=== PATIENT | female | born 1945 ===

== ENCOUNTER 2017-08-15 12:45 | Emergency (ER) | payer MEDICARE ==
--- NOTE | 2017-08-15 15:14 | C.PDOC ---
History Of Present Illness 71 year old female presents to the ED for evaluation of right shoulder pain which began after she sustained a trip and fall [employer]. Patient notes the pain begins in her shoulder and radiates down her upper arm. She states pain is worse with movement. Patient denies head injury, LOC, changes in sensation, chest pain, rib pain. Patient is right-hand dominant. Time Seen by Provider: 08/15/17 15:06 Chief Complaint (Nursing): Upper Extremity Problem/Injury History Per: Patient History/Exam Limitations: no limitations Onset/Duration Of Symptoms: Hrs Current Symptoms Are (Timing): Still Present Quality: "Pain" Exacerbating Factor(s): Movement Additional History Per: Patient Past Medical History Reviewed: Historical Data, Nursing Documentation, Vital Signs Vital Signs: Last Vital Signs Temp 98.1 F 08/15/17 16:32 Pulse 80 08/15/17 16:32 Resp 18 08/15/17 16:32 BP 130/84 08/15/17 16:32 Pulse Ox 99 08/15/17 19:59 - Medical History PMH: No Chronic Diseases Surgical History: Cholecystectomy Family History: States: Unknown Family Hx - Social History Hx Alcohol Use: No Hx Substance Use: No - Immunization History Hx Tetanus Toxoid Vaccination: No Hx Influenza Vaccination: No Hx Pneumococcal Vaccination: No Review Of Systems Musculoskeletal: Positive for: Shoulder Pain (right), Arm Pain (right) Neurological: Negative for: Weakness, Numbness, Other (LOC, head injury ) Physical Exam - Physical Exam Appears: Non-toxic, No Acute Distress Skin: Normal Color, Warm, Dry Head: Atraumatic, Normacephalic Eye(s): bilateral: Normal Inspection, EOMI Nose: Normal Oral Mucosa: Moist Neck: Normal ROM, Supple Chest: Symmetrical, No Deformity, No Tenderness Cardiovascular: Rhythm Regular Respiratory: Normal Breath Sounds, No Rales, No Rhonchi, No Wheezing Extremity: No Normal ROM (decreased in right shoulder secondary to pain ), Tenderness (diffuse, right shoulder ), Capillary Refill (less than 2 seconds ) Pulses: Left Radial: Normal, Right Radial: Normal Neurological/Psych: Oriented x3, Normal Speech, Normal Cognition, Normal Sensation ED Course And Treatment O2 Sat by Pulse Oximetry: 99 (on RA) Pulse Ox Interpretation: Normal - Other Rad shoulder XR X-Ray: Interpreted by Me, Viewed By Me, Read By Radiologist Interpretation: PROCEDURE: Radiographs of the Right Shoulder. HISTORY: Trauma. COMPARISON: No prior. FINDINGS: BONES: There is no acute displaced fracture or bone destruction. Bone alignment and mineralization are normal. 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 SOFT TISSUES: Normal. OTHER FINDINGS: None. IMPRESSION : No acute fracture or dislocation. humerus XR X-Ray: Interpreted by Me, Viewed By Me, Read By Radiologist Interpretation: PROCEDURE: Radiographs of the right humerus. HISTORY: Trauma. COMPARISON: None. FINDINGS: BONES: Bone alignment and mineralization are normal. No acute displaced fracture or focal lesion. SOFT TISSUES: Normal. OTHER FINDINGS: None. IMPRESSION: No acute displaced fracture. Progress Note: Right shoulder XR, Right Humerus XR ordered. Tylenol PO administered. On reassessment, patient is resting comfortably, with improvement pain. Patient remains afebrile, with no bony tenderness, extremity numbness or weakness, or abdominal pain. Patient is ambulatory in the emergency department with no signs of discomfort. Patient was advised to follow up with physician/clinic in 1-2 days. Case discussed with Dr Quiles who evlauated XR and agreed upon plan and treatment. Shoulder sling applied by medical instrument technician. Disposition - Disposition Referrals: Dank Carter III, MD [Staff Provider] - Disposition: HOME/ ROUTINE Disposition Time: 16:00 Condition: STABLE Additional Instructions: Rest and ice the area. Follow up with the bone doctor in 1-2 days. Instructions: Shoulder Sprain Forms: [facility] (Namibian) - Clinical Impression Clinical Impression: Shoulder strain - PA / LIFE MANAGEMENT TEACHER / Resident Statement MD/DO has reviewed & agrees with the documentation as recorded. - Scribe Statement The provider has reviewed the documentation as recorded by the Scribe (Nhi Engle) All medical record entries made by the Scribe were at my direction and personally dictated by me. I have reviewed the chart and agree that the record accurately reflects my personal performance of the history, physical exam, medical decision making, and the department course for this patient. I have also personally directed, reviewed, and agree with the discharge instructions and disposition.
--- NOTE | 2017-08-15 16:06 | RAD ---
PROCEDURE: Radiographs of the Right Shoulder HISTORY: Trauma COMPARISON: No prior. FINDINGS: BONES: There is no acute displaced fracture or bone destruction. Bone alignment and mineralization are normal. 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 SOFT TISSUES: Normal. OTHER FINDINGS: None. IMPRESSION: No acute fracture or dislocation.
[2017-08-15 16:34] VITALS: BP 130/84; PULSE 80; RESP 18; TEMP 98.1
--- NOTE | 2017-08-15 16:36 | RAD ---
PROCEDURE: Radiographs of the right humerus. HISTORY: Trauma COMPARISON: None. FINDINGS: BONES: Bone alignment and mineralization are normal. No acute displaced fracture or focal lesion. SOFT TISSUES: Normal. OTHER FINDINGS: None. IMPRESSION: No acute displaced fracture.
[2017-08-15 19:29] VITALS: O2SAT 99
== END 2017-08-15 16:34 | disposition home or self-care (01) ==
LOC: C.ER 12:45
DX: S46.911A Strain of unspecified muscle, fascia and tendon at shoulder and upper arm level, right arm, initial encounter (principal); W01.0XXA Fall on same level from slipping, tripping and stumbling without subsequent striking against object, initial encounter